=== PATIENT | female | born 1960 | race Caucasian/White ===

== ENCOUNTER 2017-11-04 06:53 | Inpatient (IN) | payer OTHER ==
[2017-11-04] MEDS ORDERED: ALBUTEROL SULFATE 0.083% NEB 2.5 MG/3 ML AMPUL NEB ONE (07:32)
[2017-11-04] MEDS ORDERED: ACETAMINOPHEN WITH CODEINE 120-12 MG/5 ML UDCUP PO ONE (07:32)
--- NOTE | 2017-11-04 07:32 | ER Document Report ---
ED Respiratory Problem - General Chief Complaint: Breathing Difficulty Stated Complaint: DIFFICULTY BREATHING Time Seen by Provider: 11/04/17 06:55 Mode of Arrival: Ambulatory Information source: Patient Notes: Patient is a 57-year-old female who presents to the ER today for cough, congestion times over a week. Patient went to urgent care 2 days ago and got put on doxycycline and Tessalon Perles but states that they are not helping. Patient has no history of COPD or asthma. She admits to shortness of breath but does not know if she has been wheezing or not. She admits to sweating, night sweats, chills but does not know if she has had a fever. TRAVEL OUTSIDE OF THE [place] IN LAST 30 DAYS: No - Related Data Allergies/Adverse Reactions: acetaminophen [From Vicodin] Allergy (Verified 08/22/15 06:31) hydrocodone bitartrate [From Vicodin] Allergy (Verified 08/22/15 06:31) meperidine HCl [From Demerol] Allergy (Verified 08/22/15 06:31) oxycodone HCl [From Percocet] Allergy (Verified 08/22/15 06:32) Past Medical History - General Information source: Patient - Social History Smoking Status: Former Smoker Family History: Reviewed & Not Pertinent - Past Medical History Cardiac Medical History: Reports: Hx Hypercholesterolemia, Hx Hypertension Endocrine Medical History: Reports: Hx Diabetes Mellitus Type 2 GI Medical History: Reports: Hx Gastroesophageal Reflux Disease Psychiatric Medical History: Reports: Hx Depression, Hx Schizophrenia Traumatic Medical History: Reports: Hx Fractures - Sesamoid bone fracture in the right foot Past Surgical History: Reports: Hx Section - x3, Hx Gynecologic Surgery - csection - Immunizations Hx Diphtheria, Pertussis, Tetanus Vaccination: Yes Review of Systems - Review of Systems Constitutional: See HPI EENT: See HPI Cardiovascular: No symptoms reported Respiratory: See HPI Gastrointestinal: No symptoms reported Genitourinary: No symptoms reported Female Genitourinary: No symptoms reported Musculoskeletal: No symptoms reported Skin: No symptoms reported Hematologic/Lymphatic: No symptoms reported Neurological/Psychological: No symptoms reported Physical Exam - Vital signs Vitals: Temp Pulse Resp BP Pulse Ox 98.6 F 119 H 22 H 139/83 H 98 11/04/17 07:01 11/04/17 07:01 11/04/17 07:01 11/04/17 07:01 11/04/17 07:01 - Notes Notes: PHYSICAL EXAMINATION: GENERAL: diaphoretic, sob, In mild acute distress. HEAD: Atraumatic, normocephalic. EYES: Pupils equal round and reactive to light, extraocular movements intact, sclera anicteric, conjunctiva are normal. ENT: ear canals without erythema or foreign body, TMs pearly [place] with good bony landmarks, nares patent, oropharynx clear without exudates. Moist mucous membranes. NECK: Normal range of motion, supple without lymphadenopathy LUNGS: cough, otherwise CTAB and equal. No wheezes rales or rhonchi. HEART: Regular rate and rhythm without murmurs ABDOMEN: Soft, no tenderness. No guarding, no rebound BACK: no vertebral tenderness, normal ROM GI/: no CVA tenderness EXTREMITIES: Normal range of motion, no pitting edema. No cyanosis. NEUROLOGICAL: Cranial nerves grossly intact. Normal sensory/motor exams. PSYCH: Normal mood, normal affect. SKIN: Warm, Dry, normal turgor, no rashes or lesions noted Course - Re-evaluation Re-evalutation: 11/04/17 09:01 On arrival patient is tachycardic, hypoxic at 84% on room air. Patient feels much better after breathing treatments, 2 L of oxygen nasal cannula. Lab work is unremarkable including a normal white blood cell count and normal lactic acid. Blood cultures pending at this time. Chest x-ray reports a right upper and lower lobe pneumonia. Patient started on azithromycin and Rocephin at this time. Dr. Gayle, hospitalist agrees to admit at this time. - Vital Signs Vital signs: Temp Pulse Resp BP Pulse Ox 98.6 F 119 H 22 H 139/83 H 98 11/04/17 07:01 11/04/17 07:15 11/04/17 07:01 11/04/17 07:01 11/04/17 07:01 - Laboratory Result Diagrams: 11/04/17 07:56 11/04/17 07:56 Laboratory results interpreted by me: 11/04/17 07:56 Glucose 194 H AST 55 H ALT 75 H Discharge - Discharge Clinical Impression: Pneumonia Qualifiers: Pneumonia type: due to unspecified organism Laterality: right Lung location: unspecified part of lung Qualified Code(s): J18.9 - Pneumonia, unspecified organism Condition: Stable Disposition: ADMITTED INPATIENT Admitting Provider: Hospitalist - [facility] Admitted: Medical Floor Additional Instructions: Return immediately for any new or worsening symptoms. Follow up with primary care provider, call tomorrow to make followup appointment.
[2017-11-04 08:13] LABS: ABSOLUTE LYMPHOCYTES (AUTO) 1.3 10^3/uL (0.5-4.7); ABSOLUTE MONOCYTES (AUTO) 0.5 10^3/uL (0.1-1.4); ABSOLUTE NEUT (AUTO) 5.6 10^3/uL (1.7-8.2); BASOPHILS % (AUTO) 0.4 % (0-2); EOSINOPHILS % (AUTO) 0.2 % (0-6); HEMATOCRIT 38.4 % (36.0-47.0); HEMOGLOBIN 13.4 g/dL (12.0-15.5); LYMPHOCYTES % (AUTO) 17.7 % (13-45); MEAN CORPUSCULAR HEMOGLOBIN 31.3 pg (27.0-33.4); MEAN CORPUSCULAR HGB CONC 34.8 g/dL (32.0-36.0); MEAN CORPUSCULAR VOLUME 90 fl (80-97); MONOCYTES % (AUTO) 6.2 % (3-13); PLATELET COUNT 322 10^3/uL (150-450); RED BLOOD COUNT 4.28 10^6/uL (3.72-5.28); RED CELL DISTRIBUTION WIDTH 13.5 % (11.5-14.0); SEGMENTED NEUTROPHILS % (AUTO) 75.5 % (42-78); TOTAL CELLS COUNTED % (AUTO) 100 %; WHITE BLOOD COUNT 7.4 10^3/uL (4.0-10.5)
[2017-11-04 08:30] LABS: ALANINE AMINOTRANSFERASE 75 U/L (9-52); ALBUMIN 4.7 g/dL (3.5-5.0); ALKALINE PHOSPHATASE 95 U/L (38-126); ANION GAP 14 (5-19); ASPARTATE AMINO TRANSFERASE 55 U/L (14-36); BILIRUBIN,DIRECT 0.3 mg/dL (0.0-0.4); BILIRUBIN,TOTAL 0.6 mg/dL (0.2-1.3); BLOOD UREA NITROGEN 10 mg/dL (7-20); CARBON DIOXIDE 24 mmol/L (22-30); CHLORIDE 101 mmol/L (98-107); CREATINE KINASE 80 U/L (30-135); GLUCOSE 194 mg/dL (75-110); POTASSIUM 3.8 mmol/L (3.6-5.0); SODIUM 139.2 mmol/L (137-145); TOTAL PROTEIN 7.2 g/dL (6.3-8.2)
[2017-11-04 08:42] LABS: CREATINE KINASE MB 0.56 ng/mL (<4.55)
[2017-11-04 08:43] LABS: TROPONIN I < 0.012 ng/mL
--- NOTE | 2017-11-04 08:48 | EKG REPORT ---
SEVERITY:- ABNORMAL ECG - SINUS TACHYCARDIA PROBABLE LEFT ATRIAL ABNORMALITY PROBABLE LEFT VENTRICULAR HYPERTROPHY BORDERLINE INFERIOR Q WAVES : Confirmed by: Indio Byers MD 04-Nov-2017 08:48:19
--- NOTE | 2017-11-04 08:48 | RADIOLOGY REPORT (SQ) ---
EXAM DESCRIPTION: CHEST PA/LAT COMPLETED DATE/TIME: 11/04/2017 8:16 am REASON FOR STUDY: pneumonia? cough, sob, tachycardia COMPARISON: 01/05/2016 EXAM PARAMETERS: NUMBER OF VIEWS: two views TECHNIQUE: Digital Frontal and Lateral radiographic views of the chest acquired. RADIATION DOSE: NA LIMITATIONS: none FINDINGS: LUNGS AND PLEURA: Patchy airspace opacities in the right upper and lower lung, new from pr ior exam. No definite effusion. MEDIASTINUM AND HILAR STRUCTURES: No masses or contour abnormalities. HEART AND VASCULAR STRUCTURES: Heart normal size. No evidence for failure. BONES: No acute findings. HARDWARE: None in the chest. OTHER: No other significant finding. IMPRESSION: Right upper and lower lobe pneumonia TECHNICAL DOCUMENTATION: JOB ID: [id number] [employer]- All Rights Reserved Reading location - IP/workstation name: [email or web address]
[2017-11-04] MEDS ORDERED: METHYLPREDNISOLONE INJ 125 MG/2 ML SDV IV ONE (08:52)
[2017-11-04] MEDS ORDERED: CEFTRIAXONE 1 GM/D5W RTU 1 GM/50 ML RTUPB IV ONE (08:52)
[2017-11-04] MEDS ORDERED: AZITHROMYCIN INJ 500 MG VIAL IV ONE (08:52)
[2017-11-04] MEDS ORDERED: ZOLPIDEM TARTRATE 5 MG TABLET PO PRN (10:46)
[2017-11-04] MEDS ORDERED: ONDANSETRON HCL INJ/PF 4 MG/2 ML SDV IV PRN (10:47)
[2017-11-04] MEDS ORDERED: IBUPROFEN 800 MG TABLET ONE (13:18)
[2017-11-04] MEDS ORDERED: ENOXAPARIN SODIUM INJ 40 MG/0.4 ML DISP.SYRIN SUBCUT ONE (13:30)
[2017-11-04] MEDS: GUAIFENESIN SYRP 200 MG/10 ML UDC PO PRN ×2 (18:13→22:27)
--- NOTE | 2017-11-04 18:26 | PDOC H&P ---
History of Present Illness Admission Date/PCP: 11/04/17 09:32 Patient complains of: Difficulty breathing x 2 days History of Present Illness: CAITLIN UMANZOR is a 57 year old female that presents with difficulty because of breathing and shortness of breath. She had been doing well until about 2 days ago when she started coughing and just feeling ill with generalized aches and pain. She went to urgent care where she was given doxycycline and anti- tussives which patient used for the last 2 days but continued to feel poorly. She then came to the emergency room for evaluation where she was found to have pneumonia and so she has been admitted for treatment. She apparently was hypoxemic with oxygen as low as 84% and this improved once she was given oxygen. Patient has been treated with intravenous antibiotics Past Medical History Cardiac Medical History: Reports: Hyperlipidema, Hypertension Endocrine Medical History: Reports: Diabetes Mellitus Type 2 GI Medical History: Reports: Gastroesophageal Reflux Disease Psychiatric Medical History: Reports: Depression Past Surgical History Past Surgical History: Reports: Section - x3 Social History Information Source: Patient Smoking Status: Former Smoker Hx Recreational Drug Use: No Drugs: None - Advance Directive Resuscitation Status: Full Code Family History Family History: Reviewed & Not Pertinent Parental Family History Reviewed: Yes - No abnormalities Children Family History Reviewed: Yes Sibling(s) Family History Reviewed.: Yes Medication/Allergy Allergies/Adverse Reactions: acetaminophen [From Vicodin] Allergy (Verified 08/22/15 06:31) hydrocodone bitartrate [From Vicodin] Allergy (Verified 08/22/15 06:31) meperidine HCl [From Demerol] Allergy (Verified 08/22/15 06:31) oxycodone HCl [From Percocet] Allergy (Verified 08/22/15 06:32) Review of Systems Constitutional: ABSENT: chills, fever(s), headache(s), weight gain, weight loss Eyes: ABSENT: visual disturbances Ears: ABSENT: hearing changes Cardiovascular: ABSENT: chest pain, dyspnea on exertion, edema, orthropnea, palpitations Respiratory: PRESENT: cough, dyspnea, sputum - whitish sputum. ABSENT: hemoptysis Gastrointestinal: ABSENT: abdominal pain, constipation, diarrhea, hematemesis, hematochezia, nausea, vomiting Genitourinary: ABSENT: dysuria, hematuria Musculoskeletal: ABSENT: joint swelling Integumentary: ABSENT: rash, wounds Neurological: ABSENT: abnormal gait, abnormal speech, confusion, dizziness, focal weakness, syncope Psychiatric: ABSENT: anxiety, depression, homidical ideation, suicidal ideation Endocrine: ABSENT: cold intolerance, heat intolerance, polydipsia, polyuria Hematologic/Lymphatic: ABSENT: easy bleeding, easy bruising Physical Exam Vital Signs: Temp Pulse Resp BP Pulse Ox 98.6 F 119 H 22 H 139/83 H 98 11/04/17 07:01 11/04/17 07:15 11/04/17 07:01 11/04/17 07:01 11/04/17 07:01 General appearance: PRESENT: no acute distress, well-developed, well-nourished Head exam: PRESENT: atraumatic, normocephalic Eye exam: PRESENT: conjunctiva pink, EOMI, PERRLA. ABSENT: scleral icterus Mouth exam: PRESENT: dry mucosa, neck supple Neck exam: ABSENT: carotid bruit, JVD, lymphadenopathy, thyromegaly Respiratory exam: PRESENT: decreased breath sounds, rales - Right sided rales, rhonchi. ABSENT: accessory muscle use, wheezes Rectal exam: PRESENT: deferred Musculoskeletal exam: PRESENT: ambulatory, deformity, full ROM Neurological exam: PRESENT: alert, altered, oriented to person, oriented to place, oriented to time, oriented to situation, reflexes normal Psychiatric exam: PRESENT: agitated Skin exam: PRESENT: abrasion Results Impressions: Chest X-Ray 11/04/17 07:24 IMPRESSION: Right upper and lower lobe pneumonia Assessment & Plan - Diagnosis (1) Pneumonia Qualifiers: Pneumonia type: due to unspecified organism Laterality: right Lung location: unspecified part of lung Qualified Code(s): J18.9 - Pneumonia, unspecified organism Is this a current diagnosis for this admission?: Yes (2) Acute respiratory failure Qualifiers: Respiratory failure complication: hypoxia Qualified Code(s): J96.01 - Acute respiratory failure with hypoxia Is this a current diagnosis for this admission?: Yes (3) Type 2 diabetes mellitus Qualifiers: Diabetes mellitus complication status: with unspecified complications Is this a current diagnosis for this admission?: Yes - Time Time Spent: 30 to 50 Minutes Medications reviewed and adjusted accordingly: Yes Anticipated discharge: Home Within: within 72 hours - Inpatient Certification Based on my medical assessment, after consideration of the patient's comorbidities, presenting symptoms, or acuity I expect that the services needed warrant INPATIENT care.: Yes I certify that my determination is in accordance with my understanding of Medicare's requirements for reasonable and necessary INPATIENT services [42 CFR 412.3e].: Yes Medical Necessity: Failure to Improve With Outpatient Therapy
[2017-11-04] MEDS ORDERED: DEXTROSE 40% GEL 15 GM TUBE X 2 PO PRN (18:43)
[2017-11-04] MEDS ORDERED: GLUCAGON,HUMAN RECOMB 1 MG INJ IM PRN (18:43)
[2017-11-04] MEDS ORDERED: DEXTROSE 40% GEL 15 GM TUBE PO PRN (18:43)
[2017-11-04] MEDS ORDERED: DEXTROSE 50%-WATER SYRINGE 25 GM/50 ML DOSE IV PRN (18:43)
[2017-11-04] MEDS ORDERED: DEXTROSE 50%-WATER SYRINGE 12.5 GM/25 ML DOSE IV PRN (18:43)
[2017-11-04] MEDS: INSULIN NPH (ISOPHANE), HUMAN 100 UNIT/ML 3 ML SUBCUT SCH (22:25)
[2017-11-05] MEDS: GUAIFENESIN SYRP 200 MG/10 ML UDC PO PRN ×3 (03:15→17:36)
[2017-11-05] MEDS: 1/2 NORMAL SALINE 1,000 ML IV PRN ×2 (03:16→22:10)
[2017-11-05 06:18] LABS: ABSOLUTE LYMPHOCYTES (AUTO) 1.7 10^3/uL (0.5-4.7); ABSOLUTE MONOCYTES (AUTO) 0.7 10^3/uL (0.1-1.4); ABSOLUTE NEUT (AUTO) 4.6 10^3/uL (1.7-8.2); BASOPHILS % (AUTO) 0.4 % (0-2); HEMATOCRIT 36.9 % (36.0-47.0); HEMOGLOBIN 12.7 g/dL (12.0-15.5); LYMPHOCYTES % (AUTO) 24.3 % (13-45); MEAN CORPUSCULAR HEMOGLOBIN 30.9 pg (27.0-33.4); MEAN CORPUSCULAR HGB CONC 34.4 g/dL (32.0-36.0); MEAN CORPUSCULAR VOLUME 90 fl (80-97); PLATELET COUNT 302 10^3/uL (150-450); RED BLOOD COUNT 4.11 10^6/uL (3.72-5.28); RED CELL DISTRIBUTION WIDTH 13.4 % (11.5-14.0); SEGMENTED NEUTROPHILS % (AUTO) 65.3 % (42-78); TOTAL CELLS COUNTED % (AUTO) 100 %; WHITE BLOOD COUNT 7.1 10^3/uL (4.0-10.5)
[2017-11-05 06:44] LABS: ANION GAP 18 (5-19); BLOOD UREA NITROGEN 19 mg/dL (7-20); CALCIUM 9.8 mg/dL (8.4-10.2); CARBON DIOXIDE 22 mmol/L (22-30); CHLORIDE 97 mmol/L (98-107); GLUCOSE 233 mg/dL (75-110); SODIUM 136.6 mmol/L (137-145)
[2017-11-05] MEDS: INSULIN REG, HUMAN 100 UNIT/ML 3 ML VIAL (PYX) SUBCUT PRN ×2 (08:19→22:07)
[2017-11-05] MEDS: IBUPROFEN 600 MG TABLET PO PRN ×2 (09:47→19:42)
[2017-11-05] MEDS: CEFTRIAXONE SODIUM 1,000 MG in NORMAL SALINE 100 ML IV SCH (09:47)
[2017-11-05] MEDS: ENOXAPARIN SODIUM INJ 40 MG/0.4 ML DISP.SYRIN SUBCUT SCH (09:48)
[2017-11-05] MEDS ORDERED: CEFTRIAXONE 1 GM/D5W RTU 1 GM/50 ML RTUPB IV SCH (10:00)
[2017-11-05] MEDS: IPRATROPIUM/ALBUTEROL 0.5-2.5 MG/3 ML AMPUL NEB PRN ×2 (10:17→18:04)
--- NOTE | 2017-11-05 12:49 | PDOC PROGRESS REPORT ---
Subjective Progress Note for:: 11/05/17 Subjective:: Admitted with Pneumonia. Patient feels better, breathing improved Reason For Visit: ACUTE HYPOXEMIC RESPIRATORY FAILURE CAP Physical Exam Vital Signs: Temp Pulse Resp BP Pulse Ox 98.4 F 94 18 156/76 H 94 11/05/17 07:37 11/05/17 10:17 11/05/17 10:17 11/05/17 07:37 11/05/17 07:37 Intake & Output 11/04/17 11/05/17 11/06/17 06:59 06:59 06:59 Intake Total 400 Balance 400 Weight 93.071 kg General appearance: PRESENT: no acute distress Head exam: PRESENT: atraumatic Eye exam: PRESENT: conjunctiva pink, EOMI, PERRLA. ABSENT: scleral icterus Mouth exam: PRESENT: moist, tongue midline Neck exam: ABSENT: carotid bruit, JVD, lymphadenopathy, thyromegaly Respiratory exam: PRESENT: decreased breath sounds, rhonchi, unlabored. ABSENT : accessory muscle use, prolonged expiratory phas, tachypnea Cardiovascular exam: PRESENT: RRR. ABSENT: diastolic murmur, rubs, systolic murmur Pulses: PRESENT: normal dorsalis pedis pul GI/Abdominal exam: PRESENT: normal bowel sounds, soft. ABSENT: distended, guarding, mass, organolmegaly, rebound, tenderness Rectal exam: PRESENT: deferred Extremities exam: PRESENT: full ROM. ABSENT: calf tenderness, clubbing, pedal edema Musculoskeletal exam: PRESENT: ambulatory Neurological exam: PRESENT: alert, oriented to person, oriented to place, oriented to time, oriented to situation, CN II-XII grossly intact. ABSENT: motor sensory deficit Psychiatric exam: PRESENT: appropriate affect, normal mood. ABSENT: homicidal ideation, suicidal ideation Results Laboratory Results: 11/05/17 05:48 11/05/17 05:48 11/05/17 11/05/17 05:48 05:48 WBC 7.1 RBC 4.11 Hgb 12.7 Hct 36.9 MCV 90 MCH 30.9 MCHC 34.4 RDW 13.4 Plt Count 302 Seg Neutrophils % 65.3 Lymphocytes % 24.3 Monocytes % 10.0 Eosinophils % 0.0 Basophils % 0.4 Absolute Neutrophils 4.6 Absolute Lymphocytes 1.7 Absolute Monocytes 0.7 Absolute Eosinophils 0.0 Absolute Basophils 0.0 Sodium 136.6 L Potassium 4.0 Chloride 97 L Carbon Dioxide 22 Anion Gap 18 BUN 19 Creatinine 0.64 Est GFR ( Amer) > 60 Est GFR (Non-Af Amer) > 60 Glucose 233 H Calcium 9.8 Impressions: Chest X-Ray 11/04/17 07:24 IMPRESSION: Right upper and lower lobe pneumonia Assessment & Plan - Diagnosis (1) Pneumonia Qualifiers: Pneumonia type: due to unspecified organism Laterality: right Lung location: unspecified part of lung Qualified Code(s): J18.9 - Pneumonia, unspecified organism Is this a current diagnosis for this admission?: Yes Plan: Continue empiric antibiotics. She is clinically improved (2) Acute respiratory failure Qualifiers: Respiratory failure complication: hypoxia Qualified Code(s): J96.01 - Acute respiratory failure with hypoxia Is this a current diagnosis for this admission?: Yes Plan: Resolving. Will wean off Oxygen as tolerated (3) Type 2 diabetes mellitus Qualifiers: Diabetes mellitus complication status: with unspecified complications Is this a current diagnosis for this admission?: Yes Plan: SSI and basal insulin - Time Time Spent with patient: 15-24 minutes Medications reviewed and adjusted accordingly: Yes Anticipated discharge: Home Within: within 48 hours - Inpatient Certification Medical Necessity: Failure to Improve With Outpatient Therapy, Need for IV Antibiotics, Risk of Complication if Not Cared For in Hospital - Respiratory compromise
[2017-11-05] MEDS: AZITHROMYCIN 500 MG in DEXTROSE 5%-WATER 250 ML IV SCH (13:08)
[2017-11-05] MEDS ORDERED: CHOLECALCIFEROL PO SCH (13:30)
[2017-11-05] MEDS ORDERED: LORAZEPAM 0.5 MG TABLET PO ONE (15:00)
[2017-11-05] MEDS ORDERED: BUSPIRONE HCL 10 MG TABLET PO ONE (15:00)
[2017-11-05] MEDS ORDERED: LORATADINE 10 MG TABLET PO ONE (15:15)
[2017-11-05] MEDS ORDERED: ZIPRASIDONE HCL 20 MG CAPSULE PO ONE ×2 (15:30→22:40)
[2017-11-05] MEDS ORDERED: MELOXICAM 7.5 MG TABLET PO ONE (16:00)
[2017-11-05] MEDS ORDERED: SUMATRIPTAN SUCCINATE 50 MG TABLET PO PRN (16:00)
[2017-11-05] MEDS: BUSPIRONE HCL 10 MG TABLET PO SCH (17:23)
[2017-11-05] MEDS: METOPROLOL TARTRATE 25 MG TABLET PO SCH (17:30)
[2017-11-05] MEDS ORDERED: SIMVASTATIN 40 MG TABLET PO SCH (22:00)
[2017-11-05] MEDS ORDERED: ZIPRASIDONE HCL 20 MG CAPSULE PO SCH ×2 (22:00)
[2017-11-05] MEDS ORDERED: LORAZEPAM 0.5 MG TABLET PO SCH (22:00)
[2017-11-05] MEDS: INSULIN NPH (ISOPHANE), HUMAN 100 UNIT/ML 3 ML SUBCUT SCH (22:06)
[2017-11-05] MEDS: LORAZEPAM 0.5 MG TABLET PO SCH (22:07)
[2017-11-06] MEDS: IBUPROFEN 600 MG TABLET PO PRN (04:03)
[2017-11-06] MEDS ORDERED: MELOXICAM 7.5 MG TABLET PO SCH (10:00)
[2017-11-06] MEDS ORDERED: (PENDING PHARMACY ID) (Multivitamin [Multivitamins] 1 TAB) PO SCH (10:00)
[2017-11-06] MEDS ORDERED: LORATADINE 10 MG TABLET PO SCH (10:00)
[2017-11-06] MEDS ORDERED: ASPIRIN 81 MG TABLET, ENT COATED PO SCH (10:00)
[2017-11-06] MEDS ORDERED: CHOLECALCIFEROL (D3) 1,000 UNIT TABLET PO SCH (10:00)
[2017-11-06] MEDS ORDERED: MULTIVITAMIN TABLET PO SCH (10:00)
[2017-11-06] MEDS: ENOXAPARIN SODIUM INJ 40 MG/0.4 ML DISP.SYRIN SUBCUT SCH (10:12)
[2017-11-06] MEDS: BUSPIRONE HCL 10 MG TABLET PO SCH ×2 (10:14→13:41)
[2017-11-06] MEDS: LORAZEPAM 0.5 MG TABLET PO SCH (10:17)
[2017-11-06] MEDS: METOPROLOL TARTRATE 25 MG TABLET PO SCH (10:18)
[2017-11-06] MEDS: CEFTRIAXONE SODIUM 1,000 MG in NORMAL SALINE 100 ML IV SCH (10:19)
[2017-11-06] MEDS: 1/2 NORMAL SALINE 1,000 ML IV PRN (10:21)
[2017-11-06] MEDS: AZITHROMYCIN 500 MG in DEXTROSE 5%-WATER 250 ML IV SCH (13:41)
--- NOTE | 2017-11-06 15:57 | PDOC DISCHARGE SUMMARY ---
General - Admit/Disc Date/PCP Admission Date/Primary Care Provider: 11/04/17 09:32 Discharge Date: 11/06/17 - Discharge Diagnosis (1) Pneumonia Is this a current diagnosis for this admission?: Yes (2) Acute respiratory failure Is this a current diagnosis for this admission?: Yes (3) Type 2 diabetes mellitus Is this a current diagnosis for this admission?: Yes - Additional Information Resuscitation Status: Full Code Discharge Diet: As Tolerated Discharge Activity: Activity As Tolerated, Balance Activity w/Rest Prescriptions: Azithromycin [Zithromax] 500 mg PO DAILY #3 tablet Cefuroxime Axetil [Ceftin 500 mg Tablet] 500 mg PO BID #10 tablet Home Medications: Aspirin [Ecotrin 81 mg EC Tablet] 81 mg PO DAILY 11/06/17 Azithromycin [Zithromax] 500 mg PO DAILY #3 tablet 11/06/17 Bupropion HCl [Wellbutrin Sr 150 mg Tablet] 150 mg PO Q12 11/06/17 Buspirone HCl [Buspar 10 mg Tablet] 10 mg PO TID 11/06/17 Cefuroxime Axetil [Ceftin 500 mg Tablet] 500 mg PO BID #10 tablet 11/06/17 Cholecalciferol (Vitamin D3) [Vitamin D3 1000 Unit Tablet] 2,000 unit PO DAILY 11/06/17 Guaifenesin [Robitussin Syrup 200 mg/10 ml Ud Cup] 200 mg PO Q4HP PRN udc 11/06 Lorazepam [Ativan 1 mg Tablet] 0.5 mg PO BIDP PRN 11/06/17 Multivitamin [Tab-A-Evie] 1 each PO DAILY 11/06/17 NPH, Human Insulin Isophane [Novolin N (NPH) Insulin 100 unit/mL] 32 unit SUBCUT BIDACBS 11/06/17 Naproxen [Naprosyn] 500 mg PO BIDP PRN 11/06/17 Omeprazole 20 mg PO QAM 11/06/17 Simvastatin [Zocor 40 mg Tablet] 20 mg PO QHS 11/06/17 Sumatriptan Succinate [Imitrex 50 mg Tablet] 50 mg PO PRN PRN 11/06/17 Trazodone HCl [Desyrel 50 mg Tablet] 75 mg PO HSP PRN 11/06/17 Ziprasidone HCl [Geodon 20 mg Capsule] 20 mg PO QHS 11/06/17 Ziprasidone HCl [Geodon 20 mg Capsule] 40 mg PO DAILY 11/06/17 History of Present Illness Patient complains of: Difficulty breathing History of Present Illness: CAITLIN UMANZOR is a 57 year old female that presents with difficulty because of breathing and shortness of breath. She had been doing well until about 2 days ago when she started coughing and just feeling ill with generalized aches and pain. She went to urgent care where she was given doxycycline and anti- tussives which patient used for the last 2 days but continued to feel poorly. She then came to the emergency room for evaluation where she was found to have pneumonia and so she has been admitted for treatment. She apparently was hypoxemic with oxygen as low as 84% and this improved once she was given oxygen. Hospital Course Hospital Course: Patient was admitted with difficulty breathing and shortness of breath and was found to have lobar PNA, CAP. She was also hypoxemic. She was started on IV Ceftriaxone as well as Zithromax and given Oxygen supplement. She responded very well to these regimens along with bronchodilators. Oxygenation has improved and on ambulation today her Oxygen saturation on Room air was >90% She has remained afebrile and hemodynamically stable nd at this time it is felt that she can be discharged home in stable condition. Physical Exam Vital Signs: Temp Pulse Resp BP Pulse Ox 98.0 F 82 16 135/77 H 93 11/06/17 11:42 11/06/17 13:21 11/06/17 13:21 11/06/17 11:42 11/06/17 13:21 Intake & Output 11/05/17 11/06/17 11/07/17 06:59 06:59 06:59 Intake Total 400 112 Balance 400 112 Weight 106.1 kg General appearance: PRESENT: no acute distress, well-developed, well-nourished Head exam: PRESENT: atraumatic, normocephalic Eye exam: PRESENT: conjunctiva pink, EOMI, PERRLA. ABSENT: scleral icterus Neck exam: ABSENT: carotid bruit, JVD, lymphadenopathy, thyromegaly Respiratory exam: PRESENT: rhonchi - few scattered. ABSENT: accessory muscle use, chest wall tenderness Pulses: PRESENT: normal dorsalis pedis pul GI/Abdominal exam: PRESENT: normal bowel sounds, soft. ABSENT: distended, guarding, mass, organolmegaly, rebound, tenderness Rectal exam: PRESENT: deferred Extremities exam: PRESENT: full ROM. ABSENT: calf tenderness, clubbing, pedal edema Musculoskeletal exam: PRESENT: ambulatory Neurological exam: PRESENT: alert, awake, oriented to person, oriented to place , oriented to time, oriented to situation, CN II-XII grossly intact. ABSENT: motor sensory deficit Results Laboratory Results: 11/05/17 05:48 11/05/17 05:48 Impressions: Chest X-Ray 11/04/17 07:24 IMPRESSION: Right upper and lower lobe pneumonia Qualifiers - * PATEINT BEING DISCHARGED WITH ANY OF THE FOLLOWING DIAGNOSIS?: No Plan Discharge Plan: DC home with oral antibiotics and follow up with PCP Time Spent: Less than 30 Minutes
[2017-11-06 17:18] VITALS: BP 135/69
[2017-11-06] MEDS ORDERED: ZIPRASIDONE HCL 20 MG CAPSULE PO SCH (22:00)
== END 2017-11-06 18:04 | disposition home or self-care (01) | DRG 193 ==
LOC: ER 06:53 → EH 09:32 → 2S 11:59
PROVIDERS: ADMIT Emergency Medicine; ATTEND Emergency Medicine
PROC: 3E0F73Z Introduction of Anti-inflammatory into Respiratory Tract, Via Natural or Artificial Opening (ICD-10-PCS; principal; 2017-11-04)
DX: J18.1 Lobar pneumonia, unspecified organism (principal); J96.01 Acute respiratory failure with hypoxia; E11.9 Type 2 diabetes mellitus without complications; E78.00 Pure hypercholesterolemia, unspecified; I10 Essential (primary) hypertension; K21.9 Gastro-esophageal reflux disease without esophagitis; F32.9 Major depressive disorder, single episode, unspecified; Z79.899 Other long term (current) drug therapy; Z87.891 Personal history of nicotine dependence
CPT/HCPCS: 36415; 71046; 80048; 80053; 82550; 82553; 82962; 83605; 84484; 85025; 87040; 93005; 93010; 94640; 94667; 94668; 99285; J0456; J0696; J1650; J1815; J2930; J3490; J7060; J7620

== ENCOUNTER 2018-01-25 09:23 | Emergency (ER) | payer OTHER ==
[2018-01-25] MEDS ORDERED: ONDANSETRON 4 MG TAB.RAPDIS PO ONE (10:00)
--- NOTE | 2018-01-25 10:02 | ER Document Report ---
ED Medical Screen (RME) - General Chief Complaint: Cold Symptoms Stated Complaint: COLD LIKE SYMPTOMS Time Seen by Provider: 01/25/18 09:57 Mode of Arrival: Ambulatory Information source: Patient Notes: 57-year-old female with a history of hypertension, diabetes, hyperlipidemia, depression, anxiety presents with multiple complaints including nasal congestion , nausea and vomiting, swelling of her fingers and feet and shortness of breath. Patient has been experiencing these symptoms intermittently for a week. Patient denies fever, chest pain, abdominal pain, diarrhea. She denies sick contacts. I have greeted and performed a rapid medical assessment of the patient. A comprehensive evaluation and assessment will be performed by another ED provider. Medical decision making, lab review/xrays if performed will be reviewed by the ED provider assuming care of the patient. PHYSICAL EXAMINATION: GENERAL: Well-appearing, well-nourished and in no acute distress. HEAD: Atraumatic, normocephalic. EYES: Pupils equal round extraocular movements intact, conjunctiva are normal. ENT: Nares patent NECK: Normal range of motion LUNGS: No respiratory distress Musculoskeletal: Normal range of motion NEUROLOGICAL: Normal speech, normal gait. PSYCH: Normal mood, normal affect. SKIN: Warm, Dry, normal turgor, no rashes or lesions noted. TRAVEL OUTSIDE OF THE [place] IN LAST 30 DAYS: No - HPI Onset: Last week Onset/Duration: Intermittent Severity: None Associated Symptoms: Headache, Nausea, Shortness of breath, Weakness, Other - nasal congestion Exacerbated by: Denies Relieved by: Denies Similar symptoms previously: Yes Recently seen / treated by doctor: Yes - Related Data Smoking: Cigarettes Frequency of alcohol use: None Drug Abuse: None Allergies/Adverse Reactions: acetaminophen [From Vicodin] Allergy (Verified 01/25/18 09:25) hydrocodone bitartrate [From Vicodin] Allergy (Verified 01/25/18 09:25) meperidine HCl [From Demerol] Allergy (Verified 01/25/18 09:25) oxycodone HCl [From Percocet] Allergy (Verified 01/25/18 09:25) Past Medical History - Past Medical History Cardiac Medical History: Reports: Hx Hypercholesterolemia, Hx Hypertension Endocrine Medical History: Reports: Hx Diabetes Mellitus Type 2 Renal/ Medical History: Denies: Hx Peritoneal Dialysis GI Medical History: Reports: Hx Gastroesophageal Reflux Disease Psychiatric Medical History: Reports: Hx Depression, Hx Schizophrenia Traumatic Medical History: Reports: Hx Fractures - Sesamoid bone fracture in the right foot Past Surgical History: Reports: Hx Section - x3, Hx Gynecologic Surgery - csection - Immunizations Hx Diphtheria, Pertussis, Tetanus Vaccination: Yes History of Influenza Vaccine for 06/2017 - 11/2017 Season: Refused Physical Exam - Vital signs Vitals: Temp Pulse Resp BP Pulse Ox 98.4 F 77 16 152/86 H 97 01/25/18 09:40 01/25/18 09:40 01/25/18 09:40 01/25/18 09:40 01/25/18 09:40 Course - Vital Signs Vital signs: Temp Pulse Resp BP Pulse Ox 98.4 F 77 16 152/86 H 97 01/25/18 09:40 01/25/18 09:40 01/25/18 09:40 01/25/18 09:40 01/25/18 09:40
[2018-01-25] MEDS ORDERED: DIPHENHYDRAMINE HCL 50 MG CAPSULE PO ONE (11:42)
[2018-01-25] MEDS ORDERED: PREDNISONE 20 MG TABLET PO ONE (11:42)
[2018-01-25] MEDS ORDERED: FAMOTIDINE 20 MG TABLET PO ONE (11:42)
--- NOTE | 2018-01-25 11:42 | ER Document Report ---
ED General - General Chief Complaint: Cold Symptoms Stated Complaint: COLD LIKE SYMPTOMS Time Seen by Provider: 01/25/18 09:57 Mode of Arrival: Ambulatory Information source: Patient Notes: 57-year-old female presents with complaints of allergic reaction. Patient notes generalized itching rash over the past week. Patient notes symptoms started once she moved into a new house couple weeks ago. Patient does admit to using a new detergent as well. Patient denies any fevers or chills denies any nausea vomiting or diarrhea denies any shortness of breath difficulty breathing TRAVEL OUTSIDE OF THE [place] IN LAST 30 DAYS: No - HPI Onset: Last week Onset/Duration: Persistent Quality of pain: No pain Severity: Mild Pain Level: Denies Associated symptoms: Other Exacerbated by: Other Relieved by: Denies Similar symptoms previously: No Recently seen / treated by doctor: No - Related Data Allergies/Adverse Reactions: acetaminophen [From Vicodin] Allergy (Verified 01/25/18 09:25) hydrocodone bitartrate [From Vicodin] Allergy (Verified 01/25/18 09:25) meperidine HCl [From Demerol] Allergy (Verified 01/25/18 09:25) oxycodone HCl [From Percocet] Allergy (Verified 01/25/18 09:25) Past Medical History - General Information source: Patient - Social History Smoking Status: Current Every Day Smoker Cigarette use (# per day): Yes Chew tobacco use (# tins/day): No Smoking Education Provided: No Frequency of alcohol use: None Drug Abuse: None Family History: Reviewed & Not Pertinent Patient has suicidal ideation: No Patient has homicidal ideation: No - Past Medical History Cardiac Medical History: Reports: Hx Hypercholesterolemia, Hx Hypertension Endocrine Medical History: Reports: Hx Diabetes Mellitus Type 2 Renal/ Medical History: Denies: Hx Peritoneal Dialysis GI Medical History: Reports: Hx Gastroesophageal Reflux Disease Psychiatric Medical History: Reports: Hx Depression, Hx Schizophrenia Traumatic Medical History: Reports: Hx Fractures - Sesamoid bone fracture in the right foot Past Surgical History: Reports: Hx Section - x3, Hx Gynecologic Surgery - csection - Immunizations Hx Diphtheria, Pertussis, Tetanus Vaccination: Yes Review of Systems - Review of Systems Notes: REVIEW OF SYSTEMS: CONSTITUTIONAL : Denies fever, chills, or sweats. Denies recent illness. EENT: Denies eye, ear, throat, or mouth pain or symptoms. Denies nasal or sinus congestion or discharge. Denies throat, tongue, or mouth swelling or difficulty swallowing. CARDIOVASCULAR: Denies chest pain. Denies palpitations or racing or irregular heart beat. Denies ankle edema. RESPIRATORY: Denies cough, cold, or chest congestion. Denies shortness of breath, difficulty breathing, or wheezing. GASTROINTESTINAL: Denies abdominal pain or distention. Denies nausea, vomiting , or diarrhea. Denies blood in vomitus, stools, or per rectum. Denies black, tarry stools. Denies constipation. GENITOURINARY: Denies difficulty urinating, painful urination, burning, frequency, blood in urine, or discharge. FEMALE GENITOURINARY: Denies vaginal bleeding, heavy or abnormal periods, irregular periods. Denies vaginal discharge or odor. MUSCULOSKELETAL: Denies back or neck pain or stiffness. Denies joint pain or swelling. SKIN: Admits to rash itching HEMATOLOGIC : Denies easy bruising or bleeding. LYMPHATIC: Denies swollen, enlarged glands. NEUROLOGICAL: Denies confusion or altered mental status. Denies passing out or loss of consciousness. Denies dizziness or lightheadedness. Denies headache. Denies weakness or paralysis or loss of use of either side. Denies problems with gait or speech. Denies sensory loss, numbness, or tingling. Denies seizures. PSYCHIATRIC: Denies anxiety or stress. Denies depression, suicidal ideation, or homicidal ideation. ALL OTHER SYSTEMS REVIEWED AND NEGATIVE. PHYSICAL EXAMINATION: GENERAL: Well-appearing, well-nourished and in no acute distress. HEAD: Atraumatic, normocephalic. EYES: Pupils equal round and reactive to light, extraocular movements intact, conjunctiva are normal. ENT: Nares patent, oropharynx clear without exudates. Moist mucous membranes. NECK: Normal range of motion, supple without lymphadenopathy LUNGS: Breath sounds clear to auscultation bilaterally and equal. No wheezes rales or rhonchi. HEART: Regular rate and rhythm without murmurs ABDOMEN: Soft, nontender, nondistended abdomen. No guarding, no rebound. No masses appreciated. Female : deferred Musculoskeletal: Normal range of motion, no pitting or edema. No cyanosis. NEUROLOGICAL: Cranial nerves grossly intact. Normal speech, normal gait. Normal sensory, motor exams PSYCH: Normal mood, normal affect. SKIN: Patient has generalized urticarial rash Dictation was performed using [employer] voice recognition software Physical Exam - Vital signs Vitals: Temp Pulse Resp BP Pulse Ox 98.4 F 77 16 152/86 H 97 01/25/18 09:40 01/25/18 09:40 01/25/18 09:40 01/25/18 09:40 01/25/18 09:40 Course - Re-evaluation Re-evalutation: 01/25/18 15:49 Patient will be started on Benadryl prednisone as well as Pepcid, however the patient is a diabetic I had a long discussion regarding the use of her insulin and checking her blood sugar. Patient states she will do so After performing a Medical Screening Examination, I estimate there is LOW risk for AIRWAY COMPROMISE, ANAPHYLAXIS, CELLULITIS, EPIGLOTTIS, or NECROTIZING FASCIITIS, thus I consider the discharge disposition reasonable. Also, there is no evidence or peritonitis, sepsis, or toxicity. I have reevaluated this patient multiple times and no significant life threatening changes are noted. The patient and I have discussed the diagnosis and risks, and we agree with discharging home with close follow-up with the understanding that symptoms and presentations can change. We also discussed returning to the Emergency Department immediately if new or worsening symptoms occur. We have discussed the symptoms which are most concerning (e.g., difficulty breathing or swallowing , fever, changing or worsening pain) that necessitate immediate return. - Vital Signs Vital signs: Temp Pulse Resp BP Pulse Ox 97.6 F 94 20 182/100 H 97 01/25/18 11:59 01/25/18 11:59 01/25/18 11:59 01/25/18 11:59 01/25/18 11:59 Discharge - Discharge Clinical Impression: Allergic reaction Qualifiers: Encounter type: initial encounter Qualified Code(s): T78.40XA - Allergy, unspecified, initial encounter Condition: Stable Disposition: HOME, SELF-CARE Additional Instructions: Please start your medication of Pepcid and prednisone tomorrow as first doses are given in the emergency department Return immediately if there are any other concerns Please check your blood sugars to make sure the prednisone is not increasing it Prescriptions: Diphenhydramine HCl [Benadryl 50 mg Capsule] 50 mg PO Q6 #20 capsule Famotidine [Pepcid 40 mg Tablet] 40 mg PO DAILY #4 tablet Prednisone [Deltasone 20 mg Tablet] 3 tab PO DAILY 4 Days tablet
[2018-01-25 12:01] VITALS: BP 182/100
== END 2018-01-25 12:01 | disposition home or self-care (01) ==
LOC: ER 09:23
DX: L50.0 Allergic urticaria (principal); I10 Essential (primary) hypertension; E10.9 Type 1 diabetes mellitus without complications; F17.210 Nicotine dependence, cigarettes, uncomplicated; Z88.5 Allergy status to narcotic agent
CPT/HCPCS: 99283; S0119; J7512

== ENCOUNTER 2018-03-04 08:58 | Emergency (ER) | payer MEDICARE, OTHER ==
--- NOTE | 2018-03-04 09:38 | ER Document Report ---
ED General - General Chief Complaint: Numbness of Arm Stated Complaint: STOMACH PAIN Time Seen by Provider: 03/04/18 09:25 Information source: Patient Notes: Patient is a 57-year-old female with past medical history including diabetes, depression, anxiety, schizophrenia, post traumatic stress disorder, hypertension , self-reported TIA in 2000, and migraines who presents today stating the onset yesterday of some left lower quadrant intermittent nonradiating abdominal "pain and gas feeling". She states nausea without vomiting, or dysuria. She has had some intermittent nonbloody diarrhea. She was started on Augmentin around 3 days ago secondary to a cat bite. Patient also states she went to bed around 1 AM and woke up at 4 AM feeling some numbness and weakness to her left hand. She states that this has subsequently resolved. She denies any headache. She denies any weakness or numbness to any other parts of the body. TRAVEL OUTSIDE OF THE [place] IN LAST 30 DAYS: No - HPI Onset: Other - See above Onset/Duration: Gradual Severity: Moderate Pain Level: 1 Associated symptoms: Other Exacerbated by: Denies Relieved by: Denies Similar symptoms previously: No Recently seen / treated by doctor: No - Related Data Allergies/Adverse Reactions: acetaminophen [From Vicodin] Allergy (Verified 03/04/18 09:28) hydrocodone bitartrate [From Vicodin] Allergy (Verified 03/04/18 09:28) meperidine HCl [From Demerol] Allergy (Verified 03/04/18 09:28) oxycodone HCl [From Percocet] Allergy (Verified 03/04/18 09:28) Past Medical History - General Information source: Patient - Social History Smoking Status: Current Every Day Smoker Cigarette use (# per day): No Chew tobacco use (# tins/day): No Smoking Education Provided: No Frequency of alcohol use: Rare Drug Abuse: None Family History: Reviewed & Not Pertinent Patient has suicidal ideation: No Patient has homicidal ideation: No - Past Medical History Cardiac Medical History: Reports: Hx Hypercholesterolemia, Hx Hypertension Endocrine Medical History: Reports: Hx Diabetes Mellitus Type 2 Renal/ Medical History: Denies: Hx Peritoneal Dialysis GI Medical History: Reports: Hx Gastroesophageal Reflux Disease Psychiatric Medical History: Reports: Hx Depression, Hx Schizophrenia Traumatic Medical History: Reports: Hx Fractures - Sesamoid bone fracture in the right foot Past Surgical History: Reports: Hx Section - x3, Hx Gynecologic Surgery - csection - Immunizations Hx Diphtheria, Pertussis, Tetanus Vaccination: Yes Review of Systems - Review of Systems Constitutional: denies: Fever EENT: denies: Eye discharge, Nose discharge Cardiovascular: denies: Chest pain, Palpitations Respiratory: denies: Short of breath Gastrointestinal: Diarrhea, Nausea. denies: Vomiting Genitourinary: denies: Dysuria Musculoskeletal: denies: Leg swelling Skin: Other - no hives. denies: Rash Neurological/Psychological: Other - no slurred speech -: Yes All other systems reviewed and negative Physical Exam - Vital signs Vitals: Pulse Resp BP Pulse Ox 85 20 124/74 94 03/04/18 09:14 03/04/18 09:14 03/04/18 09:14 03/04/18 09:14 Interpretation: Normal Notes: Reviewed vital signs and nursing note as charted by RN. CONSTITUTIONAL: Alert and oriented and responds appropriately to questions. Well -appearing; well-nourished HEAD: Normocephalic; atraumatic EYES: PERRL; Conjunctivae clear, sclerae non-icteric ENT: Normal nose; no rhinorrhea; moist mucous membranes; pharynx without lesions noted NECK: Supple without meningismus; non-tender; no carotid bruits; no cervical lymphadenopathy, no masses CARD: Regular rate and rhythm; no murmurs; symmetric distal pulses RESP: Normal chest excursion without splinting or tachypnea; breath sounds clear and equal bilaterally ABD/GI: Normal bowel sounds; non-distended; soft, ttp of the left lower abdomen without rebound, guarding, abdominal bruits, or palpable masses BACK: The back appears normal and is non-tender to palpation, there is no CVA tenderness EXT: Normal ROM in all joints; non-tender to palpation; no edema SKIN: No cat scratch, erythema, swelling, or induration NEURO: CN II through XII are intact. Patient currently has 5 out of 5 bilateral upper and lower extremity strength with sensation intact to light touch. Normal cerebellar examination PSYCH: The patient's mood and manner are appropriate. Grooming and personal hygiene are appropriate. Course - Re-evaluation Re-evalutation: Given the above history and physical examination I will order CT scan of the head as well as a CT scan of the abdomen and pelvis. Given the NIH score between 0 and 1, I do not believe that the patient is a TPA candidate. 03/04/18 09:49 EKG shows a heart of 74, normal sinus rhythm, normal axis, no obvious ST elevation or depression. 03/04/18 10:22 White blood cell count, liver panel and lipase as recorded. 03/04/18 11:12 CT scan of the head, abdomen and pelvis shows no obvious acute abnormalities. Urine analysis is still pending. Abdominal examination is improved. Patient still has no focal, neurological deficits. Aspirin has been provided. 03/04/18 13:13 Patient states her pain is "much improved". Patient has currently no tenderness to repeat examination. Still no focal neurological deficits on my examination. I have expressed to the patient the importance of possibly being admitted for further evaluation including an MRI of the brain, and echo of the heart, and carotid Dopplers. Patient states she does not want to stay and feels much better. I have explained to her again the risk of a possible subsequent stroke if she will go home without this will evaluation. She states she understands this but thinks that her hand was "just sleep". 03/04/18 13:18 Patient states that she understands these risks and does not believe that she had a TIA. She states that she will follow-up with her primary care physician. Patient has been encouraged to do this. She has also been invited to return at any time that she would like for further evaluation and treatment. - Vital Signs Vital signs: Temp Pulse Resp BP Pulse Ox 98.0 F 86 21 H 157/82 H 99 03/04/18 09:27 03/04/18 09:27 03/04/18 12:01 03/04/18 12:01 03/04/18 12:01 - Laboratory Result Diagrams: 03/04/18 09:15 03/04/18 09:15 Laboratory results interpreted by me: 03/04/18 09:15 Glucose 151 H AST 39 H Discharge - Discharge Clinical Impression: Abdominal pain, left lower quadrant, Numbness of left hand Condition: Good Disposition: HOME, SELF-CARE Additional Instructions: Come back immediately for any return of abdominal pain, change in location or quality of pain, return of numbness or weakness to your hand, or at any time that you would like for further evaluation of this numbness. Please make sure that she follow-up with your primary care physician as we have discussed. Referrals: ALEA SOLIS, [Primary Care Provider] - Follow up as needed
[2018-03-04 09:40] LABS: ABSOLUTE BASOPHILS # (AUTO) 0.1 10^3/uL (0.0-0.2); ABSOLUTE EOSINOPHILS # (AUTO) 0.2 10^3/uL (0.0-0.6); ABSOLUTE LYMPHOCYTES (AUTO) 3.4 10^3/uL (0.5-4.7); ABSOLUTE MONOCYTES (AUTO) 0.5 10^3/uL (0.1-1.4); ABSOLUTE NEUT (AUTO) 5.9 10^3/uL (1.7-8.2); BASOPHILS % (AUTO) 1.1 % (0-2); EOSINOPHILS % (AUTO) 1.6 % (0-6); HEMATOCRIT 40.1 % (36.0-47.0); HEMOGLOBIN 13.9 g/dL (12.0-15.5); LYMPHOCYTES % (AUTO) 33.7 % (13-45); MEAN CORPUSCULAR HEMOGLOBIN 31.1 pg (27.0-33.4); MEAN CORPUSCULAR HGB CONC 34.6 g/dL (32.0-36.0); MEAN CORPUSCULAR VOLUME 90 fl (80-97); MONOCYTES % (AUTO) 5.3 % (3-13); PLATELET COUNT 386 10^3/uL (150-450); RED BLOOD COUNT 4.46 10^6/uL (3.72-5.28); RED CELL DISTRIBUTION WIDTH 13.3 % (11.5-14.0); SEGMENTED NEUTROPHILS % (AUTO) 58.3 % (42-78); TOTAL CELLS COUNTED % (AUTO) 100 %; WHITE BLOOD COUNT 10.2 10^3/uL (4.0-10.5)
[2018-03-04] MEDS ORDERED: MORPHINE SULFATE 10 MG/ML INJ IV ONE (09:50)
[2018-03-04] MEDS ORDERED: ONDANSETRON HCL INJ/PF 4 MG/2 ML SDV IV ONE (09:50)
--- NOTE | 2018-03-04 09:54 | EKG REPORT ---
SEVERITY:- BORDERLINE ECG - SINUS RHYTHM PROBABLE LEFT ATRIAL ABNORMALITY : Confirmed by: Mulugeta Paredes 04-Mar-2018 09:54:38
[2018-03-04 09:55] LABS: ALANINE AMINOTRANSFERASE 41 U/L (9-52); ALBUMIN 4.7 g/dL (3.5-5.0); ALKALINE PHOSPHATASE 72 U/L (38-126); ANION GAP 9 (5-19); ASPARTATE AMINO TRANSFERASE 39 U/L (14-36); BILIRUBIN,DIRECT 0.4 mg/dL (0.0-0.4); BILIRUBIN,TOTAL 0.9 mg/dL (0.2-1.3); BLOOD UREA NITROGEN 19 mg/dL (7-20); CALCIUM 10.1 mg/dL (8.4-10.2); CARBON DIOXIDE 28 mmol/L (22-30); CHLORIDE 107 mmol/L (98-107); GLUCOSE 151 mg/dL (75-110); LIPASE 43.7 U/L (23-300); TOTAL PROTEIN 7.9 g/dL (6.3-8.2)
--- NOTE | 2018-03-04 10:57 | RADIOLOGY REPORT (SQ) ---
EXAM DESCRIPTION: CT HEAD WITHOUT COMPLETED DATE/TIME: 03/04/2018 10:49 am REASON FOR STUDY: 17, left hand weakness and numbness COMPARISON: None. TECHNIQUE: Axial images acquired through the brain without intravenous contrast. Images reviewed wi th bone, brain and subdural windows. Additional sagittal and coronal reconstructions were generated. Images stored on PACS. All CT scanners at this facility use dose modulation, iterative reconstruction, and/or weight based d osing when appropriate to reduce radiation dose to as low as reasonably achievable (ALARA). [facility]: Dose Right [facility]: CareDose [facility]: Dose Right [facility]: Teradose 4D [facility]: Smart [email or web address] RADIATION DOSE: CT Rad equipment meets quality standard of care and radiation dose reduction techniq ues were employed. CTDIvol: 48.7 mGy. DLP: 1004 mGy-cm. mGy. LIMITATIONS: None. FINDINGS: VENTRICLES: Normal size and contour. CEREBRUM: No masses. No hemorrhage. No midline shift. No evidence for acute infarction. Normal gra y/white matter differentiation. No areas of low density in the white matter. CEREBELLUM: No masses. No hemorrhage. No alteration of density. No evidence for acute infarction. EXTRAAXIAL SPACES: No fluid collections. No masses. ORBITS AND GLOBE: No intra- or extraconal masses. Normal contour of globe without masses. CALVARIUM: No fracture. PARANASAL SINUSES: No fluid or mucosal thickening. SOFT TISSUES: No mass or hematoma. OTHER: No other significant finding. IMPRESSION: NORMAL BRAIN CT WITHOUT CONTRAST. EVIDENCE OF ACUTE STROKE: NO. COMMENT: Quality ID # [id number]: Final reports with documentation of one or more dose reduction techniques (e.g., Automated exposure control, adjustment of the mA and/or kV according to patient size, use of iterative reconstruction technique) TECHNICAL DOCUMENTATION: JOB ID: [id number] [employer]- All Rights Reserved Reading location - IP/workstation name: [email or web address]
--- NOTE | 2018-03-04 11:09 | RADIOLOGY REPORT (SQ) ---
EXAM DESCRIPTION: CT ABD/PELVIS WITH IV ONLY COMPLETED DATE/TIME: 03/04/2018 10:56 am REASON FOR STUDY: 17, left lower abdominal pain COMPARISON: None. TECHNIQUE: CT scan of the abdomen and pelvis performed using helical scanning technique with dynamic intravenous contrast injection. No oral contrast. Images reviewed with lung, soft tissue, and bone windows. Reconstructed coronal and sagittal MPR images reviewed. Delayed images for evaluation of the urinary system also acquired. All images stored on PACS. All CT scanners at this facility use dose modulation, iterative reconstruction, and/or weight based d osing when appropriate to reduce radiation dose to as low as reasonably achievable (ALARA). [facility]: Dose Right [facility]: CareDose [facility]: Dose Right [facility]: Teradose 4D [facility]: [employer] CONTRAST TYPE AND DOSE: contrast/concentration: Isovue 370.00 mg/ml; Total Contrast Delivered: 100.0 ml; Total Saline Delivered: 42.0 ml RENAL FUNCTION: BUN 19 creatinine 0.67. RADIATION DOSE: CT Rad equipment meets quality standard of care and radiation dose reduction techniq ues were employed. CTDIvol: 15.9 - 17.9 mGy. DLP: 1787 mGy-cm.. LIMITATIONS: None. FINDINGS: LOWER CHEST: No significant findings. No nodules or infiltrates. LIVER: Normal size. No masses. No dilated ducts. SPLEEN: Normal size. No focal lesions. PANCREAS: No masses. No significant calcifications. No adjacent inflammation or peripancreatic fluid collections. Pancreatic duct not dilated. GALLBLADDER: No identified stones by CT criteria. No inflammatory changes to suggest cholecystitis. ADRENAL GLANDS: No significant masses or asymmetry. RIGHT KIDNEY AND URETER: Cortical cyst. No solid masses. No significant calcifications. No hydro nephrosis or hydroureter. LEFT KIDNEY AND URETER: No solid masses. No significant calcifications. No hydronephrosis or hydr oureter. AORTA AND VESSELS: No aneurysm. No dissection. Renal arteries, SMA, celiac without stenosis. RETROPERITONEUM: No retroperitoneal adenopathy, hemorrhage or masses. BOWEL AND PERITONEAL CAVITY: Diverticuli in the descending and sigmoid colon. No masses or inflammat ory changes. No free fluid or peritoneal masses. APPENDIX: Not visualized. PELVIS: No mass. No free fluid. Normal bladder. ABDOMINAL WALL: No masses. No hernias. BONES: No significant or acute findings. OTHER: No other significant finding. IMPRESSION: COLONIC DIVERTICULOSIS. NO CT FINDINGS OF DIVERTICULITIS. NO OTHER SIGNIFICANT OR ACUT E FINDING IN THE ABDOMEN OR PELVIS ON CT SCAN WITH IV CONTRAST. TECHNICAL DOCUMENTATION: JOB ID: [id number] Quality ID # [id number]: Final reports with documentation of one or more dose reduction techniques (e.g., Au tomated exposure control, adjustment of the mA and/or kV according to patient size, use of iterative reconstruction technique) 2010 [employer]- All Rights Reserved Reading location - IP/workstation name: [email or web address]
[2018-03-04] MEDS ORDERED: ASPIRIN 325 MG TABLET PO ONE (11:12)
[2018-03-04 11:44] LABS: APPEARANCE,URINE CLEAR; BILIRUBIN,URINE NEGATIVE (NEGATIVE); COLOR,URINE YELLOW; GLUCOSE, URINE NEGATIVE (NEGATIVE); KETONES,URINE NEGATIVE (NEGATIVE); LEUKOCYTE ESTERASE,URINE NEGATIVE (NEGATIVE); NITRITE,URINE NEGATIVE (NEGATIVE); PROTEIN,URINE NEGATIVE (NEGATIVE); URINE SPECIFIC GRAVITY 1.028; UROBILINOGEN,URINE NEGATIVE mg/dL (<2.0)
[2018-03-04 13:42] VITALS: BP 149/92
== END 2018-03-04 13:42 | disposition home or self-care (01) ==
LOC: ER 08:58
DX: R10.32 Left lower quadrant pain (principal); R20.0 Anesthesia of skin; R11.0 Nausea; R53.1 Weakness; F17.200 Nicotine dependence, unspecified, uncomplicated; E11.9 Type 2 diabetes mellitus without complications; I10 Essential (primary) hypertension
CPT/HCPCS: 93005; 99285; 96374; 36415; 83690; 85025; 80053; 81001; 84484; 70450; 74177; 93010; J2270

== ENCOUNTER 2018-09-15 14:51 | Emergency (ER) | payer OTHER ==
[2018-09-15] MEDS ORDERED: NICOTINE 21 MG/24 HR PATCH.TD24 TD ONE (15:06)
--- NOTE | 2018-09-15 15:07 | ER Document Report ---
ED Medical Screen (RME) - General Chief Complaint: Suicidal Ideation Stated Complaint: SUICIDAL Time Seen by Provider: 09/15/18 15:02 TRAVEL OUTSIDE OF THE [place] IN LAST 30 DAYS: No - Related Data Allergies/Adverse Reactions: acetaminophen [From Vicodin] Allergy (Verified 03/04/18 09:28) hydrocodone bitartrate [From Vicodin] Allergy (Verified 03/04/18 09:28) meperidine HCl [From Demerol] Allergy (Verified 03/04/18 09:28) oxycodone HCl [From Percocet] Allergy (Verified 03/04/18 09:28) Past Medical History - Past Medical History Cardiac Medical History: Reports: Hx Hypercholesterolemia, Hx Hypertension Endocrine Medical History: Reports: Hx Diabetes Mellitus Type 2 Renal/ Medical History: Denies: Hx Peritoneal Dialysis GI Medical History: Reports: Hx Gastroesophageal Reflux Disease Psychiatric Medical History: Reports: Hx Depression, Hx Schizophrenia Traumatic Medical History: Reports: Hx Fractures - Sesamoid bone fracture in the right foot Past Surgical History: Reports: Hx Section - x3, Hx Gynecologic Surgery - csection - Immunizations Hx Diphtheria, Pertussis, Tetanus Vaccination: Yes History of Influenza Vaccine for 06/2017 - 11/2017 Season: Refused Physical Exam - Vital signs Vitals: Temp Pulse Resp BP Pulse Ox 98.8 F 124 H 20 161/97 H 97 09/15/18 14:58 09/15/18 14:58 09/15/18 14:58 09/15/18 14:58 09/15/18 14:58 Course - Re-evaluation Re-evalutation: 09/15/18 15:05 58-year-old schizophrenic who is also suicidal has not been hospitalized for suicidality or schizophrenia in the last 10 years reportedly. I have seen and evaluated this patient in rapid medical screening exam, there will require reexamination and further assessment with possible diagnostics and disposition determination by secondary provider. - Vital Signs Vital signs: Temp Pulse Resp BP Pulse Ox 98.8 F 124 H 20 161/97 H 97 09/15/18 14:58 09/15/18 14:58 09/15/18 14:58 09/15/18 14:58 09/15/18 14:58 Doctor's Discharge - Discharge Referrals: ALEA SOLIS DO [Primary Care Provider] - Follow up as needed
[2018-09-15 15:59] LABS: ABSOLUTE BASOPHILS # (AUTO) 0.1 10^3/uL (0.0-0.2); ABSOLUTE EOSINOPHILS # (AUTO) 0.1 10^3/uL (0.0-0.6); ABSOLUTE LYMPHOCYTES (AUTO) 3.5 10^3/uL (0.5-4.7); ABSOLUTE MONOCYTES (AUTO) 0.7 10^3/uL (0.1-1.4); ABSOLUTE NEUT (AUTO) 7.4 10^3/uL (1.7-8.2); BASOPHILS % (AUTO) 0.7 % (0-2); EOSINOPHILS % (AUTO) 0.4 % (0-6); HEMATOCRIT 44.3 % (36.0-47.0); HEMOGLOBIN 15.8 g/dL (12.0-15.5); LYMPHOCYTES % (AUTO) 29.9 % (13-45); MEAN CORPUSCULAR HEMOGLOBIN 31.9 pg (27.0-33.4); MEAN CORPUSCULAR HGB CONC 35.7 g/dL (32.0-36.0); MEAN CORPUSCULAR VOLUME 89 fl (80-97); MONOCYTES % (AUTO) 5.9 % (3-13); PLATELET COUNT 374 10^3/uL (150-450); RED BLOOD COUNT 4.96 10^6/uL (3.72-5.28); RED CELL DISTRIBUTION WIDTH 13.8 % (11.5-14.0); SEGMENTED NEUTROPHILS % (AUTO) 63.1 % (42-78); TOTAL CELLS COUNTED % (AUTO) 100 %; WHITE BLOOD COUNT 11.8 10^3/uL (4.0-10.5)
--- NOTE | 2018-09-15 16:05 | ER Document Report ---
Addendum entered and electronically signed by FE WYATT LCSWA 09/16/18 10:02: Discharge - Discharge Clinical Impression: Suicidal ideation, Noncompliance with medication regimen Type 2 diabetes mellitus Qualifiers: Diabetes mellitus termite technician insulin use: with nursing home use Diabetes mellitus complication status: without complication Qualified Code(s): E11.9 - Type 2 diabetes mellitus without complications Hypertension Qualifiers: Hypertension type: unspecified Qualified Code(s): I10 - Essential (primary) hypertension Condition: Good Disposition: HOME, SELF-CARE Instructions: Hyperglycemia ([facility]) Additional Instructions: You have been evaluated by both medical and behavioral health teams and been deemed appropriate for discharge. You are recommended to follow-up with [facility] You also have been provided a local resource list of area providers including mobile crisis contact information. You are recommended to discontinue Ativan, trazodone and Geodon; you have been p rovided prescriptions for Thorazine 50mg twice daily and Depakote 250mg twice daily; please take as directed. DEPRESSION: Your evaluation reveals that you have mental depression. While symptoms may be vague, they often include disturbance of sleep, fatigue, loss of appetite, and general loss of interest in life. While depression may be a side effect of drugs, or a reaction to a major change in your life, many cases have no known cause. If depression is acute, and related to a major loss in your life, you can expect it to clear completely with time. If you have been depressed a long time, are prone to repeated bouts of depression or low mood, or have been thinking of suicide, get help. Depression can be treated with anti-depressant medication and counselling. Long-term depression will often take a few weeks to clear, even with appropriate medication. Follow-up care is important. SUICIDAL IDEATION: Suicidal ideation is a common medical term for thoughts about suicide, which may be as detailed as a formulated plan, without the suicidal act itself. Although most people who undergo suicidal ideation do not commit suicide, some go on to make suicide attempts. The range of suicidal ideation varies greatly from fleeting to detailed planning, role playing, and unsuccessful attempts. While thoughts about suicide are common, most people do not carry out s erious actions to commit suicide. Based upon your evaluation and discussion with you, we do not believe you are currently at risk to act upon your thoughts of suicide. You have agreed to return to the Emergency Department, at any time, if you feel inclined to act upon your suicidal thoughts. FOLLOW-UP CARE: If you experience worsening or a significant change in your symptoms, notify the physician immediately or return to the Emergency Department at any time for re- evaluation. Forms: Elevated Blood Pressure, Smoking Cessation Education Referrals: ALEA SOLIS DO [Primary Care Provider] - [facility] Group[facility] - Follow up in 3-5 days Original Note: ED General - General Chief Complaint: Suicidal Ideation Stated Complaint: SUICIDAL Time Seen by Provider: 09/15/18 15:02 Mode of Arrival: Ambulatory Information source: Patient Notes: 58-year-old female with hypertension, hyperlipidemia, type 2 diabetes, schizophrenia, anxiety presents with complaint of suicidal ideation. Patient states for the last few weeks she has been increasingly anxious, having thoughts of dying, but does not have a plan. Patient has had previous suicidal ideation but has never previously attempted to hurt herself. She states that she has been experiencing increased stress at home with her daughter who is being evicted with her grandchildren having no place to go. Patient denies homicidal ideation, visual and auditory hallucinations. She denies any new medications, drug use. She states that she has been compliant with her psychiatric medications. Patient denies headache, chest pain, shortness of breath, nausea, vomiting, abdominal pain. She does admit to decreased appetite. TRAVEL OUTSIDE OF THE [place] IN LAST 30 DAYS: No - HPI Onset: Other Onset/Duration: Gradual, Persistent Quality of pain: No pain Severity: None Pain Level: Denies Associated symptoms: Other - Palpitations. denies: Chest pain, Fever, Headache, Nausea, Vomiting, Shortness of breath Exacerbated by: Denies Relieved by: Denies Similar symptoms previously: Yes Recently seen / treated by doctor: Yes - Related Data Allergies/Adverse Reactions: acetaminophen [From Vicodin] Allergy (Verified 03/04/18 09:28) hydrocodone bitartrate [From Vicodin] Allergy (Verified 03/04/18 09:28) meperidine HCl [From Demerol] Allergy (Verified 03/04/18 09:28) oxycodone HCl [From Percocet] Allergy (Verified 03/04/18 09:28) nicotine patch Allergy (Uncoded 01/05/19 16:02) Past Medical History - General Information source: Patient - Social History Smoking Status: Current Every Day Smoker Cigarette use (# per day): Yes - 20 Smoking Education Provided: Yes - Smoking cessation counseling was provided for 4 minutes at the bedside Frequency of alcohol use: None Drug Abuse: None Lives with: Alone Family History: Reviewed & Not Pertinent Patient has suicidal ideation: Yes Patient has homicidal ideation: No - Past Medical History Cardiac Medical History: Reports: Hx Hypercholesterolemia, Hx Hypertension Endocrine Medical History: Reports: Hx Diabetes Mellitus Type 2 Renal/ Medical History: Denies: Hx Peritoneal Dialysis GI Medical History: Reports: Hx Gastroesophageal Reflux Disease Psychiatric Medical History: Reports: Hx Depression, Hx Schizophrenia Traumatic Medical History: Reports: Hx Fractures - Sesamoid bone fracture in the right foot Past Surgical History: Reports: Hx Section - x3, Hx Gynecologic Surgery - csection - Immunizations Hx Diphtheria, Pertussis, Tetanus Vaccination: Yes Review of Systems - Review of Systems Notes: REVIEW OF SYSTEMS: CONSTITUTIONAL : Denies fever, chills, or sweats. Denies recent illness. Denies weight loss, recent hospitalizations. EENT: Denies visual changes, eye pain. Denies sore throat, oral lesions, difficulty swallowing. CARDIOVASCULAR: Denies chest pain. Denies palpitations. Denies lower extremity edema. RESPIRATORY: Denies cough. Denies shortness of breath, wheezing. GASTROINTESTINAL: Denies abdominal pain or distention. Denies nausea, vomiting, or diarrhea. Denies blood in vomitus, stools, or per rectum. Denies black, tarry stools. Denies constipation. GENITOURINARY: Denies difficulty urinating, painful urination, frequency, blood in urine, or vaginal discharge. MUSCULOSKELETAL: Denies back or neck pain or stiffness. Denies joint pain or swelling. SKIN: Denies rash, lesions or sores. HEMATOLOGIC : Denies easy bruising or bleeding. LYMPHATIC: Denies swollen glands. NEUROLOGICAL: Denies confusion or altered mental status. Denies loss of consciousness. Denies dizziness or lightheadedness. Denies headache. Denies weakness or paralysis. Denies problems difficulty with ambulation, slurred speech. Denies sensory loss, numbness, or tingling. Denies seizures. PSYCHIATRIC: Denies homicidal ideation. Denies visual or auditory hallucinations. Physical Exam - Vital signs Vitals: Temp Pulse Resp BP Pulse Ox 98.8 F 124 H 20 161/97 H 97 09/15/18 14:58 09/15/18 14:58 09/15/18 14:58 09/15/18 14:58 09/15/18 14:58 - Notes Notes: PHYSICAL EXAMINATION: GENERAL: Well-appearing, well-nourished and in no acute distress. HEAD: Atraumatic, normocephalic. EYES: Pupils equal round and reactive to light, extraocular movements intact, conjunctiva are normal. ENT: Nares patent, oropharynx clear without exudates. Moist mucous membranes. NECK: Normal range of motion, supple without lymphadenopathy LUNGS: Breath sounds clear to auscultation bilaterally and equal. No wheezes rales or rhonchi. HEART: Regular rate and rhythm without murmurs ABDOMEN: Soft, nontender, nondistended abdomen. No guarding, no rebound. No masses appreciated. Female : deferred Musculoskeletal: Normal range of motion, no pitting or edema. No cyanosis. NEUROLOGICAL: Cranial nerves grossly intact. Normal speech, normal gait. Normal sensory, motor exams PSYCH: Admits to suicidal ideation. Denies, no ideation auditory and visual hallucination. SKIN: Warm, Dry, normal turgor, no rashes or lesions noted. Course - Re-evaluation Re-evalutation: 09/15/18 19:50 Laboratory 09/15/18 09/15/18 09/15/18 15:38 15:38 15:38 WBC 11.8 H RBC 4.96 Hgb 15.8 H Hct 44.3 MCV 89 MCH 31.9 MCHC 35.7 RDW 13.8 Plt Count 374 Seg Neutrophils % 63.1 Lymphocytes % 29.9 Monocytes % 5.9 Eosinophils % 0.4 Basophils % 0.7 Absolute Neutrophils 7.4 Absolute Lymphocytes 3.5 Absolute Monocytes 0.7 Absolute Eosinophils 0.1 Absolute Basophils 0.1 Sodium 139.4 Potassium 3.4 L Chloride 97 L Carbon Dioxide 26 Anion Gap 16 BUN 7 Creatinine 0.69 Est GFR ( Amer) > 60 Est GFR (Non-Af Amer) > 60 Glucose 333 H Calcium 10.6 H Total Bilirubin 0.7 Direct Bilirubin 0.4 Neonat Total Bilirubin Not Reportable Neonat Direct Bilirubin Not Reportable Neonat Indirect Bili Not Reportable AST 76 H ALT 96 H Alkaline Phosphatase 115 Total Protein 7.8 Albumin 5.2 H Urine Color YELLOW Urine Appearance CLEAR Urine pH 5.0 Ur Specific Banner 1.011 Urine Protein NEGATIVE Urine Glucose (UA) >=500 H Urine Ketones 20 H Urine Blood SMALL H Urine Nitrite NEGATIVE Urine Bilirubin NEGATIVE Urine Urobilinogen NEGATIVE Ur Leukocyte Esterase NEGATIVE Urine WBC (Auto) 2 Urine RBC (Auto) 1 U Hyaline Cast (Auto) 1 Urine Bacteria (Auto) TRACE Squamous Epi Cells Auto 2 Urine Mucus (Auto) RARE Urine Ascorbic Acid NEGATIVE Salicylates < 1.0 L Urine Opiates Screen Urine Methadone Screen Acetaminophen < 10 L Ur Barbiturates Screen Ur Phencyclidine Scrn Ur Amphetamines Screen U Benzodiazepines Scrn Urine Cocaine Screen U Marijuana (THC) Screen Serum Alcohol < 10 09/15/18 15:38 WBC RBC Hgb Hct MCV MCH MCHC RDW Plt Count Seg Neutrophils % Lymphocytes % Monocytes % Eosinophils % Basophils % Absolute Neutrophils Absolute Lymphocytes Absolute Monocytes Absolute Eosinophils Absolute Basophils Sodium Potassium Chloride Carbon Dioxide Anion Gap BUN Creatinine Est GFR ( Amer) Est GFR (Non-Af Amer) Glucose Calcium Total Bilirubin Direct Bilirubin Neonat Total Bilirubin Neonat Direct Bilirubin Neonat Indirect Bili AST ALT Alkaline Phosphatase Total Protein Albumin Urine Color Urine Appearance Urine pH Ur Specific Banner Urine Protein Urine Glucose (UA) Urine Ketones Urine Blood Urine Nitrite Urine Bilirubin Urine Urobilinogen Ur Leukocyte Esterase Urine WBC (Auto) Urine RBC (Auto) U Hyaline Cast (Auto) Urine Bacteria (Auto) Squamous Epi Cells Auto Urine Mucus (Auto) Urine Ascorbic Acid Salicylates Urine Opiates Screen NEGATIVE Urine Methadone Screen NEGATIVE Acetaminophen Ur Barbiturates Screen NEGATIVE Ur Phencyclidine Scrn NEGATIVE Ur Amphetamines Screen NEGATIVE U Benzodiazepines Scrn NEGATIVE Urine Cocaine Screen NEGATIVE U Marijuana (THC) Screen NEGATIVE Serum Alcohol Temp Pulse Resp BP Pulse Ox 98.8 F 124 H 20 161/97 H 97 09/15/18 14:58 09/15/18 14:58 09/15/18 14:58 09/15/18 14:58 09/15/18 14:58 58-year-old female presents with suicidal ideation. Vital signs reviewed upon arrival. Patient is tachycardic, hypertensive. Patient has no plan for suicide but reports increasing thoughts due to increased stress at home. Patient was evaluated by Dr. Shipman and medication recommendations were given which were to discontinue trazodone decrease Ativan from 1 mg 3 times daily to 0.25 mg twice daily. She recommends discontinuation of Geodon in addition of Thorazine 50 mg twice daily and Depakote 250 mg twice daily. Patient was found to be hyperglycemic without evidence of DKA. Dr. Shipman believes that it is the patient's Geodon use and medication noncompliance which is the reason her glucose is elevated. Accu-Cheks will be obtained 3 times daily. Patient does not meet IVC criteria but Dr. Shipman has agreed to allow her to stay overnight for reassessment in the morning after new medications. Patient has been cooperative, stable throughout her ED course. Home medications of simvastatin, insulin were started. Patient may leave at any time if she chooses. 09/15/18 19:56 - Vital Signs Vital signs: Temp Pulse Resp BP Pulse Ox 98.8 F 124 H 20 161/97 H 97 09/15/18 14:58 09/15/18 14:58 09/15/18 14:58 09/15/18 14:58 09/15/18 14:58 - Laboratory Result Diagrams: 09/15/18 15:38 09/15/18 15:38 Laboratory results interpreted by me: 09/15/18 09/15/18 09/15/18 15:38 15:38 15:38 WBC 11.8 H Hgb 15.8 H Potassium 3.4 L Chloride 97 L Glucose 333 H POC Glucose Calcium 10.6 H AST 76 H ALT 96 H Albumin 5.2 H Urine Glucose (UA) >=500 H Urine Ketones 20 H Urine Blood SMALL H Salicylates < 1.0 L Acetaminophen < 10 L 09/15/18 22:40 WBC Hgb Potassium Chloride Glucose POC Glucose 261 H Calcium AST ALT Albumin Urine Glucose (UA) Urine Ketones Urine Blood Salicylates Acetaminophen - EKG Interpretation by Sc EKG shows normal: Sinus rhythm Rate: Tachycardia Rhythm: NSR Discharge - Discharge Clinical Impression: Suicidal ideation, Noncompliance with medication regimen Type 2 diabetes mellitus Qualifiers: Diabetes mellitus nursing home insulin use: with nursing home use Diabetes mellitus complication status: without complication Qualified Code(s): E11.9 - Type 2 diabetes mellitus without complications; Z79.4 - terminal system operator (current) use of insulin Hypertension Qualifiers: Hypertension type: unspecified Qualified Code(s): I10 - Essential (primary) hypertension Condition: Good Disposition: HOME, SELF-CARE Instructions: Hyperglycemia ([facility]) Forms: Elevated Blood Pressure, Smoking Cessation Education Referrals: ALEA SOLIS DO [Primary Care Provider] - Follow up as needed
[2018-09-15 16:11] LABS: APPEARANCE,URINE CLEAR; BILIRUBIN,URINE NEGATIVE (NEGATIVE); COLOR,URINE YELLOW; GLUCOSE, URINE >=500 mg/dL (NEGATIVE); KETONES,URINE 20 mg/dL (NEGATIVE); LEUKOCYTE ESTERASE,URINE NEGATIVE (NEGATIVE); NITRITE,URINE NEGATIVE (NEGATIVE); PROTEIN,URINE NEGATIVE (NEGATIVE); URINE SPECIFIC GRAVITY 1.011; UROBILINOGEN,URINE NEGATIVE mg/dL (<2.0)
[2018-09-15 16:16] LABS: ALANINE AMINOTRANSFERASE 96 U/L (9-52); ALBUMIN 5.2 g/dL (3.5-5.0); ALKALINE PHOSPHATASE 115 U/L (38-126); ANION GAP 16 (5-19); ASPARTATE AMINO TRANSFERASE 76 U/L (14-36); BILIRUBIN,DIRECT 0.4 mg/dL (0.0-0.4); BILIRUBIN,TOTAL 0.7 mg/dL (0.2-1.3); BLOOD UREA NITROGEN 7 mg/dL (7-20); CALCIUM 10.6 mg/dL (8.4-10.2); CARBON DIOXIDE 26 mmol/L (22-30); CHLORIDE 97 mmol/L (98-107); GLUCOSE 333 mg/dL (75-110); POTASSIUM 3.4 mmol/L (3.6-5.0); SODIUM 139.4 mmol/L (137-145); TOTAL PROTEIN 7.8 g/dL (6.3-8.2)
[2018-09-15 16:21] LABS: URINE AMPHETAMINES SCREEN NEGATIVE; URINE BARBITURATES SCREEN NEGATIVE; URINE BENZODIAZEPINES SCREEN NEGATIVE; URINE COCAINE SCREEN NEGATIVE; URINE MARIJUANA (THC) SCREEN NEGATIVE; URINE METHADONE SCREEN NEGATIVE; URINE PHENCYCLIDINE SCREEN NEGATIVE
[2018-09-15 16:22] LABS: ACETAMINOPHEN < 10 ug/mL (10-30); ALCOHOL < 10 mg/dL (NONE DETECTED); SALICYLATE < 1.0 mg/dL (2.0-20.0)
[2018-09-15] MEDS ORDERED: CHLORPROMAZINE HCL 50 MG TABLET PO SCH (19:00)
[2018-09-15] MEDS ORDERED: DIVALPROEX SODIUM 250 MG TABLET.DR PO SCH (19:00)
[2018-09-15] MEDS ORDERED: LORAZEPAM 0.5 MG TABLET PO SCH (19:00)
--- NOTE | 2018-09-15 19:16 | EKG REPORT ---
SEVERITY:- ABNORMAL ECG - SINUS TACHYCARDIA LEFT ATRIAL ABNORMALITY CONSIDER ANTERIOR INFARCT NONSPECIFIC REPOL ABNORMALITY, LATERAL LEADS : Confirmed by: Viv Do MD 15-Sep-2018 19:15:01
[2018-09-15] MEDS ORDERED: INSULIN REG, HUMAN 100 UNIT/ML 3 ML VIAL (PYX) SUBCUT ONE ×2 (19:51→23:05)
[2018-09-15] MEDS ORDERED: SIMVASTATIN 40 MG TABLET PO SCH (22:00)
[2018-09-16] MEDS ORDERED: MELATONIN 5 MG TABLET PO ONE (03:03)
[2018-09-16] MEDS ORDERED: (PENDING PHARMACY ID) (Nph, Human Insulin Isophane [Novolin N (Nph) Insulin 100 Unit/Ml] 3 SUBCUT SCH (08:00)
--- NOTE | 2018-09-16 09:17 | ER Document Report ---
Doctor's Note Notes: 09/16/18 09:17 Patient seen and evaluated by myself. She is a 58-year-old female who presents with suicidal ideation. Behavioral health was consulted when the patient was medically cleared. She has a history of medication noncompliance. They recommended stopping the trazodone, Ativan, Geodon. They recommend Thorazine 50 mg twice daily and Depakote 250 mg twice daily. Patient states that she feels no different today. No issues overnight per nursing. Patient's vital signs are stable. Behavioral health to see and evaluate the patient this morning and provide recommendations. 09/16/18 10:44 Behavioral health recommend discharge home with continuation of the medication suggestions. Patient to follow up at the [facility].
[2018-09-16] MEDS ORDERED: DIVALPROEX SODIUM 250 MG TABLET.DR PO SCH (10:00)
[2018-09-16] MEDS ORDERED: LORAZEPAM 0.5 MG TABLET PO SCH (10:00)
[2018-09-16] MEDS ORDERED: ASPIRIN 81 MG TABLET, ENT COATED PO SCH (10:00)
[2018-09-16] MEDS ORDERED: CHLORPROMAZINE HCL 50 MG TABLET PO SCH (10:00)
[2018-09-16 11:05] VITALS: BP 145/81
--- NOTE | 2018-09-16 12:30 | PSYCHOLOGICAL NOTE ---
Psych Note - Psych Note Date seen by psych provider: 09/15/18 Time seen by psych provider: 15:30 Psych Note: Met with Patient who reported she was having suicidal ideation without plan or intent. She indicated she has a history of schizophrenia and anxiety and for the past few weeks has had ongoing suicidal ideation ideation but tonight it got to the point she felt she needed to come to the hospital. Patient reported a history of at least 15 hospitalizations with the last one approximately 3 years ago due to "my hallucinations and to get my medications straight." She denied any suicide attempts but stated she has had thoughts of suicide since 2007 which is also when she was diagnosed with schizophrenia. She reported her symptoms of schizophrenia include hallucinations only, which she has reportedly not experienced in the past 3 months. She stated her provider is Eliza Nicole of the [place] and she also has a therapist of which she cannot recall her name. She reported she last saw her provider approximately 3 months ago because she provides 3 months prescriptions. She reported she has a scheduled appointment next week sometime. Reported current medications include the following: Trazadone 200 mg nightly, Geodon 40 mg daily, Ativan 1 mg three times daily, Wellbutrin 150 mg daily. She reported her son lives in the area and she has a good relationship with him. Patient continually requested inpatient psychiatric hospitalization and Ativan, however, during the evaluation she changed her story several times with regard to time frames of medication prescriptions, physician appointments, and the amount of medications being prescribed. Review of the [place] Controlled Substance Abuse Registry revealed the patient has been receiving a prescription for Ativan for over 2 years at 1 mg daily. Her last prescription was filled on August 24, 2018 for 30 days and her toxicology drug screen upon admission demonstrated a negative result for benzodiazepines. In addition, patient asked the nurse for Ativan at least 4 times within the first 60 minutes in her room. She also provided inconsistent information to the initial physician and then to this clinician. This type of behavior is generally consistent with an individual who is seeking medications. When asked about these inconsistencies, Patient became irritable and stated she had a bad memory (despite being able to accurately recall her medicine doses except the Ativan) Patient was alert and oriented to person, place, time, and circumstance. Mood was cooperative and euthymic with mood congruent affect. She reported passive suicidal ideation without intent or plan. She denied homicidal ideation, intent or plan, or a history of the same. She denied current auditory / visual hallucinations and delusions were absent. Thought processes were logical, linear, and rational. Eye contact was well maintained. Conversational speech was within normal limits for rate, tone, and prosody. Intellectual abilities were estimated within the average range. Attention and concentration was within normal limits while insight, judgment, and impulse control was fair. Medication recommendation from consulting psychiatrist, Dr. Argueta: 1. Discontinue Trazodone 2. Discontinue Geodon 3. Decrease Ativan to 0.25 mg twice per day 4. Add Thorazine 50 mg twice per day 5. Add Depakote 250 mg twice per day Impression / Plan: Patient presents with passive suicidal ideation with what is believed to be secondary gain for Ativan. She was insistent on being transferred to inpatient psychiatric facility as she previously was sent inpatient anytime she requested if she reported passive suicidality. Patient's labs revealed her glucose was 333 upon admission to the ED and it was likely her home medications are contributing to her hyperglycemia which in turn is impacting her depression / anxiety. Patient's psychiatric medications were adjusted in hopes of assisting in managing her diabetes. At this time, she does not meet criteria for IVC but the patient agrees to stay the night for observation while her adjusting her medications. 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 ED Physician in agreement with recommendation and disposition.
--- NOTE | 2018-09-20 13:34 | PSYCHOLOGICAL NOTE ---
Psych Note - Psych Note Date seen by psych provider: 09/16/18 Time seen by psych provider: 07:20 Psych Note: Reason for Consult: Suicidal ideation Patient states for the last few weeks she has been increasingly anxious, having thoughts of dying, but does not have a plan. Check in conducted with patient Patient reports that she feels the same no better. She presents with euthymic mood and congruent affect. She reports that she wants continued assistance and agrees that she needs to speak [facility] Clinician discussed patient care options ie outpatient therapy with medication management. Patient denies current suicidal ideation; voices concern will come back. Medication recommendation per [facility]'s contracted psychiatrist Dr Kendall FERNANDEZ are as follows discontinue Ativan, trazodone and Geodon continue Thorazine 50mg twice daily Continue Depakote 250mg twice daily 311 (F32.9) Unspecified Depressive disorder R/O substance abuse/dependency Impression\plan: Patient is cleared from acute psychiatric services. Patient denies current thoughts of suicidal ideation and when she did it was passive suicidal ideation i.e. no plans means or intent. Patient is very focused on wanting inpatient psychiatric treatment. Patient adjustments have been conducted. Clinician conducted psychoeducation and discussed patient care options i.e. outpatient therapy with medication management. Patient does not meet IVC criteria per [place] GS 122C. Patient is recommended to follow-up with [facility]. She was also provided a local resource list of area providers including mobile crisis contact information. Umberto was consulted and the care management this patient; attending physicians in agreement with recommendations and disposition
== END 2018-09-16 11:05 | disposition home or self-care (01) ==
LOC: ER 14:51
DX: R45.851 Suicidal ideations (principal); E11.9 Type 2 diabetes mellitus without complications; I10 Essential (primary) hypertension; E78.5 Hyperlipidemia, unspecified; F20.9 Schizophrenia, unspecified; F41.9 Anxiety disorder, unspecified; R63.0 Anorexia; Z91.14 Patient's other noncompliance with medication regimen; R00.2 Palpitations; F17.210 Nicotine dependence, cigarettes, uncomplicated
CPT/HCPCS: 93005; 99285; 36415; 82962; 80307 ×4; 85025; 80053; 81001; 93010; J3490 ×3; J1815